=== PATIENT | female | born 1955 | race Caucasian/White ===

== ENCOUNTER → 2016-06-05 | Outpatient (CLI) | payer BC ==
--- NOTE | 2016-06-05 14:39 | XR ---
EXAMINATION TYPE: XR lumbar spine 2 or 3V DATE OF EXAM: 06/05/2016 1:47 PM COMPARISON: NONE HISTORY: Lumbar disc degenerative change TECHNIQUE: 3 view lumbar spine FINDINGS: There is loss of disc height throughout the lumbar spine. This may be greatest at the poste rior L4-5 level within the posterior L3-4 level. There are 5 lumbar-type vertebral bodies. The pedicl es are intact. Vertebral body heights are preserved. Alignment is normal. IMPRESSION: 1. Degenerative disc changes throughout the lumbar spine.
== END | disposition home or self-care (01) ==
LOC: RADXRMAIN 13:32
PROVIDERS: ATTEND Family Medicine
DX: M51.36 Other intervertebral disc degeneration, lumbar region (principal)
CPT/HCPCS: 72100

== ENCOUNTER → 2016-06-18 | Outpatient (CLI) | payer BC ==
--- NOTE | 2016-06-18 10:59 | MM ---
Reason for exam: history of breast cancer, mastectomy. Last mammogram was performed 1 year ago. History: Patient has history of breast cancer at age 54. Mastectomy of the right breast. Chemotherapy. Taking Arimidex beginning at age 54. Physical Findings: Nurse did not find any significant physical abnormalities on exam. MG 3D Diag Mammo W/Cad LT CC and MLO view(s) were taken of the left breast. Prior study comparison: June 17, 2015, mammogram. June 15, 2014, mammogram. May 16, 2012, mammogram. There are scattered fibroglandular densities. No significant new findings when compared with previous films. These results were verbally communicated with the patient and result sheet given to the patient on 06/18/16. ASSESSMENT: Negative, BI-RAD 1 RECOMMENDATION: Follow-up diagnostic mammogram of the left breast in 1 year. MIKKI
--- NOTE | 2016-06-18 15:10 | BD ---
EXAMINATION TYPE: MG DEXA axial skeleton. DATE OF EXAM: 06/18/2016 8:54 AM COMPARISON: NONE CLINICAL HISTORY: 60-year-old female postmenopausal screening, history of breast cancer, osteopenia Height: 65.2 IN Weight: 164 LBS FRAX RISK QUESTIONS: Alcohol (3 or more units per day): NO Family History (Parent hip fracture): NO Glucocorticoids (More than 3mos): NO (Ex: prednisone, prednisolone, methylprednisolone, dexamethasone, and hydrocortisone). History of Fracture in Adulthood: YES LT HAND 52 RT HAND 59 Secondary Osteoporosis: 1. Type 1 Diabetes: NO 2. Hyperthyroidism: NO 3. Menopause before 45: NO 4. Malnutrition: NO 5. Chronic liver disease: NO Rheumatoid Arthritis: NO Current Tobacco Use: NO RISK FACTORS HISTORY OF: Hip Fracture (Right/Left): MERCEDES When: MERCEDES AGE 6, LT AGE 51 Spine Fracture: When: History of Wrist Fracture: MERCEDES When: MERCEDES AGE 6, LT AGE 51 Other Fractures since Age 52: YES LT HAND AGE 52 AND RT HAND AGE 59 Active: YES Postmenopausal woman: AGE 51 MEDICATIONS: Additional Medications: VIT D, CALCIUM, ARIMIDEX, BLOOD PRESSURE MED, LISINOPRIL Additional History: BREAST CANCER WITH CHEMO EXAM MEASUREMENTS: Bone mineral densitometry was performed using the [employer] System. Bone mineral density as measured about the Lumbar spine is: ----- L1-L4(G/cm2): 0.993 T Score Values are as follows: ----- L2: -2.3 ----- L3: -1.7 ----- L4: -0.9 ----- L1-L4: -1.6 Bone mineral density has: Decreased -0.7% since study of: 02/11/2015 Bone mineral density about the R hip (g/cm2): 0.743 Bone mineral density about the L hip (g/cm2): 0.740 T Score values are as follows: -----R Neck: -2.1 -----L Neck: -2.1 -----R Intertrochanter: -1.8 -----L Intertrochanter: -1.8 Bone mineral density has: Decreased -1.8% since study of: 02/11/2015 IMPRESSION: Osteopenia as indicated by T score values in the lumbar spine and both hips. There is slightly increased risk of fracture and the patient may be considered for treatment. Re-Screen 2-5 years. NOTE: T-SCORE=SD OF THE YOUNG ADULT MEAN.
== END | disposition home or self-care (01) ==
LOC: RADMAMWWP 08:51
PROVIDERS: ATTEND Internal Medicine Hematology & Oncology
DX: M85.80 Other specified disorders of bone density and structure, unspecified site (principal)
CPT/HCPCS: 77080; G0206; G0279

== ENCOUNTER → 2016-07-02 | Outpatient (CLI) | payer BC ==
--- NOTE | 2016-07-03 06:20 | US ---
EXAMINATION TYPE: US thyroid st tissue head/neck DATE OF EXAM: 07/02/2016 4:57 PM COMPARISON: US thyroid February 24, 2014. CLINICAL HISTORY: Hypercalcemia E83.52. Hypercalcemia GLAND SIZE: Right Lobe: 4.5 x 1.4 x 1.4 cm Overall Parenchyma: homogenous Left Lobe: 4.1 x 1.3 x 1.3 cm Overall Parenchyma: homogeneous Isthmus Thickness: 0.3 cm NODULES RIGHT: # of nodules measured on right: 3 1. 0.6 X 0.6 x 0.6 cm hypoechoic solid nodule at the mid pole with well-defined margins. This nodul e is wider than tall and shows intranodular vascularity. Prior size: 0.7 x 0.4 x 0.5 cm 2. 0.8 X 0.4 x 0.8 cm hypoechoic solid nodule at the mid pole with well-defined margins. This nodule is wider than tall and shows intranodular vascularity. Prior size: 0.6 x 0.6 x 0.5 cm 3. 0.7 X 0.4 x 0.7 cm hypoechoic solid nodule at the lower pole with well-defined margins. This nodu le is wider than tall and shows intranodular vascularity. Prior size: 0.6 x 0.4 x 0.7 cm LEFT: # of nodules measured on left: 0 ISTHMUS: # of nodules measured in the isthmus: 0 Multiple right thyroid nodules as described above, bilateral neck scanned, no evidence of lymphadenop athy. Thyroid gland remains normal in size with scattered small nodules in right thyroid lobe felt stable i n size and appearance. No left-sided or isthmus nodules are identified. No suspicious extrathyroid ma ss noted on images saved. IMPRESSION: Thyroid gland is normal in size, no suspicious greater than 1 cm solid or cystic nodules are seen. No suspicious extrathyroid nodules noted.
== END | disposition home or self-care (01) ==
LOC: RADUSWWP 16:40
PROVIDERS: ATTEND Family Medicine
DX: E04.2 Nontoxic multinodular goiter (principal); E83.52 Hypercalcemia
CPT/HCPCS: 76536

== ENCOUNTER → 2017-06-19 | Outpatient (CLI) | payer BC ==
--- NOTE | 2017-06-19 17:53 | BD ---
EXAMINATION TYPE: MG DEXA axial skeleton. DATE OF EXAM: 06/19/2017 COMPARISON: 06/18/2016 CLINICAL HISTORY: Height: 65 IN Weight: 161 LBS FRAX RISK QUESTIONS: Alcohol (3 or more units per day): NO Family History (Parent hip fracture): NO Glucocorticoids (More than 3mos): NO (Ex: prednisone, prednisolone, methylprednisolone, dexamethasone, and hydrocortisone). History of Fracture in Adulthood: YES RT HAND / WRIST FX AGE 60 Secondary Osteoporosis: 1. Type 1 Diabetes: NO 2. Hyperthyroidism: NO 3. Menopause before 45: NO 4. Malnutrition: NO 5. Chronic liver disease: NO Rheumatoid Arthritis: NO Current Tobacco Use: NO RISK FACTORS HISTORY OF: History of Wrist Fracture: YES AGE 60 When: AGE 60 Active: YES Postmenopausal woman: AGE 52 MEDICATIONS: Additional Medications: VIT D, ARIMIDEX,LISINOPRIL, PREVACID, Additional History: BREAST CANCER WITH CHEMO EXAM MEASUREMENTS: Bone mineral densitometry was performed using the [employer] System. Bone mineral density as measured about the Lumbar spine is: ----- L1-L4(G/cm2): 1.081 T Score Values are as follows: ----- L2: -1.3 ----- L3: -0.8 ----- L4: 0.0 ----- L1-L4: -0.8 Bone mineral density has: Increased 10.6% since study of: 06/18/2016 Bone mineral density about the R hip (g/cm2): 0.729 Bone mineral density about the L hip (g/cm2): 0.722 T Score values are as follows: -----R Neck: -2.2 -----L Neck: -2.3 -----R Total: -1.7 -----L Total: -2.0 Bone mineral density has: Decreased -3.5% since study of: 06/18/2016 IMPRESSION: Osteopenia (T Score between -2.5 and -1). There is slightly increased risk of fracture and the patient may be considered for treatment. Re-Screen 2-5 years. NOTE: T-SCORE=SD OF THE YOUNG ADULT MEAN.
--- NOTE | 2017-06-20 10:57 | MM ---
Reason for exam: additional evaluation requested from prior study. Last mammogram was performed 1 year ago. History: Patient is postmenopausal and has history of bilateral breast cancer at age 54. Mastectomy of the right breast. Chemotherapy. Taking antineoplastic beginning at age 54. Taking other hormone beginning at age 59. Physical Findings: Nurse did not find any significant physical abnormalities on exam. MG 3D Diag Mammo W/Cad LT CC, MLO, LM, and spot compression MLO view(s) were taken of the left breast. Prior study comparison: June 18, 2016, left breast MG 3d diag mammo w/cad LT. June 17, 2015, mammogram. There are scattered fibroglandular densities. Finding: There is equal, indistinct, architectural distortion in the upper quadrant middle position of the left breast consistent with probable summation density, not present of compression or ML view. No significant changes in finding since June 18, 2016 and June 17, 2015. These results were verbally communicated with the patient and result sheet given to the patient on 06/19/17. ASSESSMENT: Benign, BI-RAD 2 RECOMMENDATION: Routine screening mammogram of both breasts in 1 year.
== END | disposition home or self-care (01) ==
LOC: RADMAMWWP 13:23
PROVIDERS: ATTEND Internal Medicine Hematology & Oncology
DX: C50.912 Malignant neoplasm of unspecified site of left female breast (principal); C50.911 Malignant neoplasm of unspecified site of right female breast; M85.80 Other specified disorders of bone density and structure, unspecified site; Z79.899 Other long term (current) drug therapy
CPT/HCPCS: 77080; 77065; G0279

== ENCOUNTER → 2018-01-31 | Outpatient (CLI) | payer BC ==
--- NOTE | 2018-01-31 14:11 | CT ---
EXAMINATION TYPE: CT abdomen pelvis w con DATE OF EXAM: 01/31/2018 HISTORY: History of hiatal hernia and renal stones with hematuria. Generalized abdominal pain x [address] DLP: 1190mGycm Automated Exposure Control for Dose Reduction was Utilized. CONTRAST: CT scan of the abdomen and pelvis is performed with IV Contrast, patient injected with 100 mL of Isov ue 300. COMPARISON: None FINDINGS: LUNG BASES: Patchy bibasilar linear scarring and/or atelectasis is present.. LIVER/GB: Subcentimeter low dense lesion right hepatic lobe axial image 19 is too small to further ch aracterize but presumed benign. PANCREAS: No significant abnormality is seen. SPLEEN: Subcentimeter splenule in splenic hilum axial image 23 is noted. ADRENALS: No significant abnormality is seen. KIDNEYS: No renal calculi clearly seen. Symmetric cortical medullary uptake and excretion is present without hydronephrosis seen bilaterally or concerning solid or cystic renal mass. No intraluminal paige culi are seen in poorly distended bladder. BOWEL: Oral contrast reaches level of hepatic flexure. There is no suspicious small or large bowel di latation. UTERUS/ADNEXA: Anteverted uterus is seen. LYMPH NODES: No greater than 1cm abdominal or pelvic lymph nodes are appreciated. OSSEOUS STRUCTURES: Mild facet arthropathy lower lumbar spine is seen. OTHER: No significant additional abnormality is seen. IMPRESSION: No renal stones or hydronephrosis. No suspicious finding is seen to account for patient's symptoms of hematuria. No fixed hiatal hernia is present. No suspicious acute finding is seen to acc ount for patient's symptoms of generalized pain for 2 weeks.
== END | disposition home or self-care (01) ==
LOC: RADCTMAIN 11:47
PROVIDERS: ATTEND Family Medicine
DX: R10.84 Generalized abdominal pain (principal); R31.9 Hematuria, unspecified
CPT/HCPCS: 74177; Q9967

== ENCOUNTER 2018-03-06 09:36 | Day surgery (SDC) | payer BC ==
[2018-02-28 09:25] VITALS: BMI 26.1
[~2018-03-06 09:36] MED LIST: LACTATED RINGERS 1,000 ML IV SCH; LIDOCAINE 1% 20 ML VIAL (10MG/ML) FOR IV START INTRADERMA PRN; MIDAZOLAM (PF) 2 MG/2 ML VIAL IV PRN
[2018-03-06 10:00] VITALS: TEMP 97.8
[2018-03-06] MEDS ORDERED: PROPOFOL 10 MG/ML 20 ML VIAL IV ONE (10:58)
--- NOTE | 2018-03-06 11:34 | P.PCN ---
Date of Procedure: 03/06/18 Procedure(s) Performed: Procedures: 1. Esophagogastroduodenoscopy and biopsy. 2. Colonoscopy and biopsy. Preoperative diagnosis: Abdominal bloating and change in bowel habits. Postoperative diagnosis: 1. Small sliding hiatal hernia with no obvious esophagitis or complicated reflux disease. 2. Mild gastritis. 3. Normal colon and terminal ileum. 4. Biopsies obtained from the duodenum, antrum, esophagus, terminal ileum and right colon. Preparation: HalfLytely prep. Sedation: Was provided by anesthesia. Brief clinical history: The patient is a 62-year-old female who has been having abdominal bloating and change in bowel habits for the last 2-3 months. She feels gurgling. Has intermittent diarrhea. No bleeding, extraintestinal manifestations of inflammatory bowel disease or other alarm symptoms. This evaluation is to assess for complicated reflux disease, inflammatory bowel disease or other pathology. Procedure: With the patient on her left lateral decubitus position and after informed consent and adequate sedation, I passed the Olympus-GIF 160 video upper endoscope through the cricopharyngeus down the esophagus. GE junction was around 38 cm from the incisors and there was a small sliding hiatal hernia but no obvious esophagitis or complicated reflux disease. The endoscope was then passed into the stomach which was insufflated with air and inspected in detail including the retroflex view in the cardia. There was diffuse mottling and erythema and regenerative diminutive polyps in the gastric body but no ulcers or erosions. Pyloric channel, duodenal bulb, post bulbar area and descending duodenum appeared within normal limits. Because of her symptoms, I obtained biopsies from the duodenum, antrum and esophagus then the endoscope was withdrawn and I proceeded with the colonoscopy. Perianal area did not show any fissures or fistulas. There were no masses felt on digital rectal examination. The Olympus CFH 190L video colonoscope was then inserted in the rectum in the usual fashion and advanced to the cecum. I intubated the ileocecal valve and examined the terminal ileum. Terminal ileum and colon appeared healthy with no edema, erythema, friability, ulceration, exudation or spontaneous bleeding. I obtained biopsies from the right colon and terminal ileum. I then retroflexed the endoscope in the rectum before the endoscope was withdrawn. The patient tolerated the procedure well. Plan: The patient was reassured. Will await biopsy results and make further plans based on her course and biopsy results. She will follow-up with you as planned and I will keep you updated on her progress.
[2018-03-06 11:55] VITALS: BP 126/81; PULSE 60; RESP 18
== END 2018-03-06 12:10 | disposition home or self-care (01) ==
LOC: ORWHC2ENDO 09:36
DX: K29.50 Unspecified chronic gastritis without bleeding (principal); K44.9 Diaphragmatic hernia without obstruction or gangrene; R19.7 Diarrhea, unspecified; I34.1 Nonrheumatic mitral (valve) prolapse; E07.9 Disorder of thyroid, unspecified; I10 Essential (primary) hypertension; Z79.899 Other long term (current) drug therapy; Z91.048 Other nonmedicinal substance allergy status; Z90.11 Acquired absence of right breast and nipple; Z85.828 Personal history of other malignant neoplasm of skin
CPT/HCPCS: 88305; 45380; 43239; J2704

== ENCOUNTER → 2018-06-20 | Outpatient (CLI) | payer BC ==
--- NOTE | 2018-06-20 10:56 | US ---
EXAMINATION TYPE: US thyroid st tissue head/neck DATE OF EXAM: 06/20/2018 COMPARISON: 07/02/2016 CLINICAL HISTORY: E04.2 Nontoxic multinodular goiter. GLAND SIZE: Right Lobe: 4.1 x 1.5 x 1.2 cm Overall Parenchyma: heterogenous Left Lobe: 3.8 x 1.1 x 1.4 cm Overall Parenchyma: heterogeneous Isthmus Thickness: 0.3 cm NODULES RIGHT: # of nodules measured on right: 3 1. 0.7 X 0.6 x 0.6 cm hypoechoic solid nodule at the mid pole with well-defined margins. This nodu le is taller than wide and shows intranodular vascularity. Prior size: 0.7 x 0.7 x 0.6 cm 2. 0.4 X 0.6 x 0.5 cm isoechoic solid nodule at the mid pole with well-defined margins. This nodule is wider than tall and shows no intranodular vascularity. Prior size: 0.9 x 0.5 x 0.6 cm 3. 0.7 X 0.4 x 0.8 cm hypoechoic solid nodule at the lower pole with well-defined margins . This n odule is wider than tall and shows intranodular vascularity. Prior size: 0.8 x 0.5 x 0.8 cm LEFT: # of nodules measured on left: 0 ISTHMUS: # of nodules measured in the isthmus: 0 Bilateral neck scanned, no evidence of lymphadenopathy. IMPRESSION: Similar size of the multiple right-sided subcentimeter thyroid nodules. No left-sided nodules are see n.
== END | disposition home or self-care (01) ==
LOC: RADUSWWP 09:16
PROVIDERS: ATTEND Family Medicine
DX: E04.2 Nontoxic multinodular goiter (principal)
CPT/HCPCS: 76536

== ENCOUNTER → 2018-06-20 | Outpatient (CLI) | payer BC ==
--- NOTE | 2018-06-20 10:48 | USB ---
Reason for exam: additional evaluation requested from abnormal screening. History: Patient is postmenopausal and has history of breast cancer at age 54. Mastectomy of the right breast. Chemotherapy. Taking other hormone beginning at age 54. US Breast Limited LT Left limited breast ultrasound including focal area of concern, retroareolar and axilla demonstrates no cystic or solid lesion seen. Scattered areas of dense tissue. These results were verbally communicated with the patient and result sheet given to the patient on 06/20/18. ASSESSMENT: Negative, BI-RAD 1 RECOMMENDATION: Routine screening mammogram of the left breast in 1 year. MTDD
--- NOTE | 2018-06-24 08:43 | MM ---
Reason for exam: additional evaluation requested from prior study. Last mammogram was performed 1 year ago. History: Patient is postmenopausal and has history of breast cancer at age 54. Mastectomy of the right breast. Chemotherapy. Taking other hormone beginning at age 54. Physical Findings: Nurse Summary: 0.5-1cm nodule in the left breast at 6 o'clock, 8-9 o'clock and 10 o'clock (nurse kp). MG 3D Diag Mammo W/Cad LT CC and MLO view(s) were taken of the left breast. Prior study comparison: June 19, 2017, left breast MG 3d diag mammo w/cad LT. June 18, 2016, left breast MG 3d diag mammo w/cad LT. There are scattered fibroglandular densities. No suspicious abnormality. These results were verbally communicated with the patient and result sheet given to the patient on 06/20/18. ASSESSMENT: Incomplete: need additional imaging evaluation, BI-RAD 0 RECOMMENDATION: Ultrasound of the left breast. (palpables)
== END | disposition home or self-care (01) ==
LOC: RADMAMWWP 09:19
PROVIDERS: ATTEND Internal Medicine Hematology & Oncology
DX: Z08 Encounter for follow-up examination after completed treatment for malignant neoplasm (principal); Z85.3 Personal history of malignant neoplasm of breast
CPT/HCPCS: 77061; 77065

== ENCOUNTER → 2019-08-17 | Outpatient (CLI) | payer BC ==
--- NOTE | 2019-08-18 10:24 | MM ---
Reason for exam: additional evaluation requested from prior study. Last mammogram was performed 1 year and 2 months ago. History: Patient is postmenopausal and has history of breast cancer at age 54. Mastectomy of the right breast. Chemotherapy. Taking other hormone beginning at age 54. Physical Findings: Nurse did not find any significant physical abnormalities on exam. MG 3D Diag Mammo W/Cad LT CC and MLO view(s) were taken of the left breast. Prior study comparison: June 20, 2018, left breast MG 3d diag mammo w/cad LT. June 19, 2017, left breast MG 3d diag mammo w/cad LT. The breast tissue is heterogeneously dense. This may lower the sensitivity of mammography. Global asymmetry stable in the upper outer quadrant. No significant new findings when compared with previous films. These results were verbally communicated with the patient and result sheet given to the patient on 08/17/19. ASSESSMENT: Negative, BI-RAD 1 RECOMMENDATION: Follow-up diagnostic mammogram of the left breast in 1 year.
== END | disposition home or self-care (01) ==
LOC: RADMAMWWP 12:52
PROVIDERS: ATTEND Internal Medicine Hematology & Oncology
DX: Z08 Encounter for follow-up examination after completed treatment for malignant neoplasm (principal); Z85.3 Personal history of malignant neoplasm of breast; Z90.710 Acquired absence of both cervix and uterus; M89.9 Disorder of bone, unspecified
CPT/HCPCS: 77061; 77065

== ENCOUNTER → 2019-08-17 | Outpatient (CLI) | payer BC ==
--- NOTE | 2019-08-17 14:05 | US ---
EXAMINATION TYPE: US thyroid st tissue head/neck DATE OF EXAM: 08/17/2019 COMPARISON: 06/20/2018 CLINICAL HISTORY: 64-year-old female E04.1 Nontoxic single thyroid nodule. Thyroid nodules TECHNIQUE: Multiple sonographic images of the thyroid gland are obtained. FINDINGS: GLAND SIZE: Right Lobe: 4.6 x 1.4 x 1.5 cm Overall Parenchyma: heterogenous Left Lobe: 4.5 x 1.4 x 1.2 cm Overall Parenchyma: heterogeneous Isthmus Thickness: 0.3 cm NODULES RIGHT: # of nodules measured on right: 3 1. 0.7 X 0.8 x 0.7 cm hypoechoic solid nodule at the medial mid pole with well-defined margins. Thi s nodule is taller than wide and shows intranodular vascularity. Prior size: 0.7 x 0.6 x 0.6 cm 2. 0.9 X 0.4 x 0.6 cm hypoechoic solid nodule at the mid pole with well-defined margins. This nodule is wider than tall and shows intranodular vascularity. Prior size: 0.4 x 0.6 x 0.5 cm 3. 1.0 X 0.6 x 0.9 cm hypoechoic solid nodule at the mid pole with well-defined margins. This nodule is wider than tall and shows intranodular vascularity. Prior size: 0.7 x 0.4 x 0.8 cm LEFT: # of nodules measured on left: 0 ISTHMUS: # of nodules measured in the isthmus: 0 Bilateral neck scanned, no evidence of lymphadenopathy. IMPRESSION: 3 solid nodules redemonstrated on the right. These show minimal increase in size by up to 2 to 3 mm, largest currently measuring 10 x 9 x 6 mm versus 8 x 7 x 4 mm, previously. Continued follow-up recomm ended.
== END | disposition home or self-care (01) ==
LOC: RADUSWWP 12:50
PROVIDERS: ATTEND Family Medicine
DX: E04.2 Nontoxic multinodular goiter (principal)
CPT/HCPCS: 76536

== ENCOUNTER → 2019-08-25 | Outpatient (CLI) | payer BC ==
--- NOTE | 2019-08-25 11:51 | BD ---
EXAMINATION TYPE: Axial Bone Density DATE OF EXAM: 08/25/2019 COMPARISON: Prior DEXA bone scan June 19, 2017. CLINICAL HISTORY: Postmenopausal female. Disorder of bone. Nuclear Medicine Study in the last 2 weeks: NO Barium Study in the last week: NO : NO Height: 5 FT 5 1/2 IN Weight: 155 FRAX RISK QUESTIONS: Alcohol (3 or more units per day): NO Family History (Parent hip fracture): NO Glucocorticoids (More than 3mos): NO (Ex: prednisone, prednisolone, methylprednisolone, dexamethasone, and hydrocortisone). History of Fracture in Adulthood: YES Secondary Osteoporosis: 1. Type 1 Diabetes: NO 2. Hyperthyroidism: NO 3. Menopause before 45: NO 4. Malnutrition: NO 5. Chronic liver disease: NO Rheumatoid Arthritis: QUESTIONABLE Current Tobacco Use: NO RISK FACTORS HISTORY OF: Active: YES Postmenopausal woman: AGE 47 MEDICATIONS: Additional Medications: ARIMIDEX, VIT D, XANAX, AMBIEN, Additional History: HISTORY OF BREAST CANCER CHEMO EXAM MEASUREMENTS: Bone mineral densitometry was performed using the [employer] System. Bone mineral density as measured about the Lumbar spine is: ----- L1-L4(G/cm2): 1.168 T Score Values are as follows: ----- L2: -1.3 ----- L3: 0.8 ----- L4: 1.3 ----- L1-L4: -0.1 Bone mineral density has: INCREASED 10.6 % since study of: 2017 Bone mineral density about the R hip (g/cm2): 0.726 Bone mineral density about the L hip (g/cm2): 0.705 T Score values are as follows: -----R Neck: -2.2 -----L Neck: -2.4 -----R Total: -1.8 -----L Total: -2.1 Bone mineral density has: DECREASED -2.3 % since study of: 2017 IMPRESSION: Osteopenia (T Score between -2.5 and -1) remains present. There remains slightly increased risk of fracture and the patient may be considered for treatment. Re-Screen 2-5 years. NOTE: T-SCORE=SD OF THE YOUNG ADULT MEAN.
== END | disposition home or self-care (01) ==
LOC: RADBDWWP 07:55
PROVIDERS: ATTEND Internal Medicine Hematology & Oncology
DX: M85.80 Other specified disorders of bone density and structure, unspecified site (principal)
CPT/HCPCS: 77080

== ENCOUNTER → 2020-03-11 | Outpatient (CLI) | payer BC ==
--- NOTE | 2020-03-11 08:26 | US ---
EXAMINATION TYPE: US thyroid st tissue head/neck DATE OF EXAM: 03/11/2020 COMPARISON: US's CLINICAL HISTORY: E04.2 nontoxic multinodular goiter. GLAND SIZE: Right Lobe: 4.3 x 1.4 x 1.3 cm Overall Parenchyma: heterogenous Left Lobe: 4.4 x 1.3 x 1.4 cm Overall Parenchyma: heterogeneous Isthmus Thickness: 0.2 cm NODULES RIGHT: # of nodules measured on right: 4 1. 0.7 X 0.8 x 0.8 cm solid or almost completely solid, hypoechoic nodule, which is taller than wid e, with smooth margins, without echogenic foci. Prior size: 0.7 x 0.8 x 0.7 cm 2. 0.9 X 0.5 x 0.7 cm solid or almost completely solid, hypoechoic nodule, which is wider than tall , with smooth margins, without echogenic foci. Prior size: 0.9 x 0.4 x 0.6 cm 3. 0.6 X 0.4 x 0.7 cm solid or almost completely solid, hypoechoic nodule, which is wider than tall , with smooth margins, without echogenic foci. Prior size: 1.0 x 0.6 x 0.9 cm 4. 0.8 X 0.5 x 0.8 cm solid or almost completely solid, isoechoic nodule, which is wider than tall, with smooth margins, without echogenic foci. Prior size: not previously measured. LEFT: # of nodules measured on left: 0 ISTHMUS: # of nodules measured in the isthmus: 0 Bilateral neck scanned, no evidence of lymphadenopathy. IMPRESSION: No enlarging thyroid nodules. 2017 ACR TI-RADS LEVEL: 4 *Highest TI-RADS level nodule reported
== END | disposition home or self-care (01) ==
LOC: RADUSWWP 07:29
PROVIDERS: ATTEND Family Medicine
DX: E04.2 Nontoxic multinodular goiter (principal)
CPT/HCPCS: 76536

== ENCOUNTER → 2020-08-22 | Outpatient (CLI) | payer BC ==
--- NOTE | 2020-08-22 11:12 | MM ---
Reason for exam: additional evaluation requested from prior study. Last mammogram was performed 1 year ago. History: Patient is postmenopausal and has history of breast cancer at age 54. Mastectomy of the right breast. Chemotherapy. Taking other hormone for 10 years beginning at age 54. Physical Findings: Nurse did not find any significant physical abnormalities on exam. MG 3D Diag Mammo W/Cad LT CC and MLO view(s) were taken of the left breast. Prior study comparison: August 17, 2019, left breast MG 3d diag mammo w/cad LT. June 20, 2018, left breast MG 3d diag mammo w/cad LT. There are scattered fibroglandular densities. Stable post right lumpectomy. These results were verbally communicated with the patient and result sheet given to the patient on 08/22/20. ASSESSMENT: Benign, BI-RAD 2 RECOMMENDATION: Follow-up diagnostic mammogram of the left breast in 1 year.
== END | disposition home or self-care (01) ==
LOC: RADMAMWWP 10:08
PROVIDERS: ATTEND Internal Medicine Hematology & Oncology
DX: N64.89 Other specified disorders of breast (principal); Z78.0 Asymptomatic menopausal state; Z85.3 Personal history of malignant neoplasm of breast; Z90.11 Acquired absence of right breast and nipple
CPT/HCPCS: 77061; 77065

== ENCOUNTER → 2020-09-21 | Outpatient (CLI) | payer BC ==
--- NOTE | 2020-09-21 07:50 | US ---
EXAMINATION TYPE: US thyroid st tissue head/neck DATE OF EXAM: 09/21/2020 COMPARISON: US dated 03/11/2020 CLINICAL HISTORY: E04.2 nontoxic goiter. GLAND SIZE: Right Lobe: 4.4 x 1.4 x 1.4 cm Overall Parenchyma: heterogenous Left Lobe: 4.5 x 1.1 x 1.3 cm Overall Parenchyma: heterogeneous Isthmus Thickness: 0.3 cm NODULES RIGHT: # of nodules measured on right: 3 1. 0.8 X 0.9 x 0.8 cm, upper mid, solid or almost completely solid, hypoechoic nodule, which is jose ler than wide, with smooth margins, without echogenic foci. Prior size: 0.7 x 0.8 x 0.8 cm 2. 0.8 X 0.5 x 0.9 cm, lower mid, solid or almost completely solid, hypoechoic nodule, which is wid er than tall, with smooth margins, without echogenic foci. Prior size: 0.8 x 0.5 x 0.8 cm 3. 0.6 X 0.5 x 0.6 cm, mid mid, solid or almost completely solid, hypoechoic nodule, which is wider than tall, with smooth margins, without echogenic foci. Prior size: 0.9 x 0.5 x 0.7 cm There is one more smaller nodule that has decreased in size. LEFT: # of nodules measured on left: 0 ISTHMUS: # of nodules measured in the isthmus: 0 Bilateral neck scanned, no evidence of lymphadenopathy. IMPRESSION: Multiple right thyroid nodules which are smaller or similar in size to the prior exam. 2017 ACR TI-RADS LEVEL: TI-RADS 5 - Highly Suspicious: Follow if > 0.5 cm, FNA if > 1.0 cm *Highest TI-RADS level nodule reported
== END | disposition home or self-care (01) ==
LOC: RADUSWWP 07:04
PROVIDERS: ATTEND Family Medicine
DX: E04.2 Nontoxic multinodular goiter (principal)
CPT/HCPCS: 76536

== ENCOUNTER → 2021-08-24 | Outpatient (CLI) | payer BC ==
--- NOTE | 2021-08-24 11:53 | MM ---
Reason for Exam: Additional evaluation requested from prior study. Last screening mammogram was performed 12 month(s) ago. Patient History: Menarche at age 14. First Full-Term at age 30. Postmenopausal. Breast cancer, right, age 54. Previous chemotherapy at age 54. Mastectomy on the Right side. Chemotherapy. Prior Study Comparison: 06/20/2018 Left Diagnostic Mammogram, [facility]. 08/17/2019 Left Diagnostic Mammogram, [facility]. 08/22/2020 Left Diagnostic Mammogram, [facility]. Tissue Density: Left: There are scattered fibroglandular densities. Findings: Analyzed By CAD. Pattern appears stable. No suspicious spiculated or lobular mass cluster microcalcifications or architectural distortion is evident. Overall Assessment: Benign, BI-RAD 2 Management: Screening Mammogram of the left breast in 1 year. A clinical breast exam by your physician is recommended on an annual basis and results should be correlated with mammographic findings. This exam should not preclude additional follow-up of suspicious palpable abnormalities. Results were given to the patient verbally at the time of exam. Electronically signed and approved by: Víctor Padilla D.O. Radiologis
== END | disposition home or self-care (01) ==
LOC: RADMAMWWP 10:50
PROVIDERS: ATTEND Internal Medicine Hematology & Oncology
DX: R92.8 Other abnormal and inconclusive findings on diagnostic imaging of breast (principal); Z78.0 Asymptomatic menopausal state; Z85.3 Personal history of malignant neoplasm of breast
CPT/HCPCS: 77061; 77065

== ENCOUNTER → 2021-10-16 | Outpatient (CLI) | payer BC ==
--- NOTE | 2021-10-16 10:12 | US ---
EXAMINATION TYPE: US thyroid st tissue head/neck DATE OF EXAM: 10/16/2021 COMPARISON: 03/10/2021 CLINICAL HISTORY: 66-year-old female E04.2 Nontoxic multinodular goiter. TECHNIQUE: Multiple sonographic images of the thyroid gland are obtained. GLAND SIZE: Right Lobe: 4.5 x 1.4 x 1.1 cm Overall Parenchyma: heterogenous Left Lobe: 4.4 x 1.0 x 1.3 cm Overall Parenchyma: heterogeneous Isthmus Thickness: 0.2 cm NODULES RIGHT: # of nodules measured on right: 4 1. 0.8 X 0.5 x 0.5 cm, upper, solid or almost completely solid, hypoechoic TR 4 nodule, which is wi елена than tall, with smooth margins, without echogenic foci. Prior size:0.8 x 0.8 x 0.9 cm 2. 0.9 X 0.9 x 0.9 cm, upper, solid or almost completely solid, hypoechoic nodule, which is taller than wide, with smooth margins, without echogenic foci. Prior size:0.8 x 0.8 x 0.9 cm 3. 0.7 X 0.5 x 0.6cm, lower , solid or almost completely solid, hypoechoic TR 4 nodule, which is wi елена than tall, with smooth margins, without echogenic foci. Prior size:0.8 X 0.5 x 0.5 cm 4. 0.7 X 0.5 x 0.6 cm, lower, solid or almost completely solid, hypoechoic TR 4 nodule, which is wi елена than tall, with ill-defined margins, without echogenic foci. Prior size: 0.8 X 0.9 x 0.5 LEFT: # of nodules measured on left: 0 ISTHMUS: # of nodules measured in the isthmus: 0 Bilateral neck scanned, no evidence of lymphadenopathy. IMPRESSION: Approximately four solid TR4 nodules in the right lobe are redemonstrated, largest measuring up to 9 mm. These are unchanged and can continue to be followed. FNA if they reach 1.5 cm.
== END | disposition home or self-care (01) ==
LOC: RADUSWWP 07:37
PROVIDERS: ATTEND Family Medicine
DX: E04.2 Nontoxic multinodular goiter (principal)
CPT/HCPCS: 76536

== ENCOUNTER → 2022-08-27 | Outpatient (CLI) | payer MEDICARE ==
--- NOTE | 2022-08-28 08:42 | MM ---
Reason for Exam: Screening (asymptomatic). Last screening mammogram was performed 12 month(s) ago. Patient History: Menarche at age 14. First Full-Term at age 30. Postmenopausal. Breast cancer, right, age 54. Previous chemotherapy at age 54. Mastectomy on the Right side. Chemotherapy. Prior Study Comparison: 08/17/2019 Left Diagnostic Mammogram, [facility]. 08/22/2020 Left Diagnostic Mammogram, [facility]. 08/24/2021 Left MG 3D diag mammo w/cad LT, [facility]. Tissue Density: Left: There are scattered fibroglandular densities. Findings: Analyzed By CAD. There is no suspicious group of microcalcifications or new suspicious mass in either breast. Overall Assessment: Negative, BI-RAD 1 Management: Screening Mammogram of both breasts in [address] [facility] will attempt to contact patient to return for supplemental views and ultrasound if indicated. Patient should continue monthly self-breast exams. A clinical breast exam by your physician is recommended on an annual basis. This exam should not preclude additional follow-up of suspicious palpable abnormalities. Note on Ary scores and lifetime risk: 1. A Ary score greater than 3% is considered moderate risk. If this is the case, consider specialist referral to assess eligibility for a risk reducing agent. 2. If overall lifetime risk for the development of breast cancer is 20% or higher, the patient may qualify for future screening with alternating mammogram and breast MRI. Electronically signed and approved by: Brando Gil DO
== END ==
LOC: RADMAMWWP 09:55
PROVIDERS: ATTEND Internal Medicine Hematology & Oncology
DX: Z12.31 Encounter for screening mammogram for malignant neoplasm of breast (principal); Z78.0 Asymptomatic menopausal state; Z90.11 Acquired absence of right breast and nipple
CPT/HCPCS: 77063; 77067

== ENCOUNTER → 2022-09-12 | Outpatient (CLI) | payer MEDICARE ==
--- NOTE | 2022-09-12 13:10 | US ---
EXAMINATION TYPE: US Aorta Screening DATE OF EXAM: 09/12/2022 COMPARISON: 01/31/2018 CLINICAL INDICATION: Female, 67 years old with history of Z13.6 ENCOUNTER FOR SCREENING FOR CARDIOVAS CULAR D; SCREENING, BROTHER W/AAA TECHNIQUE: Multiple sonographic images of the abdominal aorta are obtained. 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 No evidence for aortic aneurysm.
== END | disposition home or self-care (01) ==
LOC: RADUSWWP 08:55
PROVIDERS: ATTEND Family Medicine
DX: Z13.6 Encounter for screening for cardiovascular disorders (principal); I77.811 Abdominal aortic ectasia
CPT/HCPCS: 76706

== ENCOUNTER → 2022-09-19 | Outpatient (CLI) | payer MEDICARE ==
--- NOTE | 2022-09-20 09:33 | BD ---
EXAMINATION TYPE: Axial Bone Density DATE OF EXAM: 09/19/2022 CLINICAL HISTORY: 67 years old Female. ICD-10 CODE: M85.9 DISORDER OF BONE DENSITY Height: 65 Weight: 158.9 FRAX RISK QUESTIONS: Alcohol (3 or more units per day): no Family History (Parent hip fracture): no Glucocorticoids (More than 3mos): no History of Fracture in Adulthood: Foot, Bilateral Hands, Wrist Secondary Osteoporosis: 1. Type 1 Diabetes: no 2. Hyperthyroidism: no 3. Menopause before 45: no 4. Malnutrition: no 5. Chronic liver disease: no Rheumatoid Arthritis: no Current Tobacco Use: no RISK FACTORS HISTORY OF: Hip Fracture (Right/Left): no Spine Fracture: no History of Wrist Fracture: bilateral When: age 6 Surgery to Spine/Hip(right/left)/Wrist (right/left): no Family History of Osteoporosis: no Active: yes Diet low in dairy products/other sources of calcium: no Postmenopausal woman: yes Take estrogen and/or progesterone medications: no Lost more than 2 inches in height since high school: no Frequent falls: no Poor Health: no Hyperparathyroidism: no Adrenal Insufficiency: no MEDICATIONS: Prednisone or other steroids: no Thyroid Medications:no Osteoporosis Medications: no Additional Medications: Vit D, Calcium, Citracal, [place] 3, xanax Additional History: Breast 2010 with chemo EXAM MEASUREMENTS: Bone mineral densitometry was performed using the [employer] System. Bone mineral density as measured about the Lumbar spine is: ----- L1-L4(G/cm2 1.210 T Score Values are as follows: ----- L1: -1.1 ----- L2: -0.3 ----- L3: 1.8 ----- L4: 0.9 ----- L1-L4: 0.2 Z Score Values are as follows: ----- L1: 0.2 ----- L2: 1.0 ----- L3: 3.1 ----- L4: 2.2 ----- L1-L4: `1.6 Bone mineral density has: increased 3.6 % since study of: 08/25/2019 Bone mineral density about the R hip (g/cm2): 0.824 Bone mineral density about the L hip (g/cm2): 0.784 T Score values are as follows: -----R Neck: -2.1 -----L Neck: -1.9 -----R Total: -1.5 -----L Total: -1.8 Z Score values are as follows: -----R Neck: -0.8 -----L Neck: -0.6 -----R Total: -0.4 -----L Total: -0.8 Bone mineral density has: increased 6.1 % since study of: 08/25/2019 FRAX%s: The graph provided illustrates a 18.4% chance for a major osteoporotic fx and a 3.1% chance f or the hips probability for fx in 10 years time. IMPRESSION: Osteopenia (T Score between -2.5 and -1). There is slightly increased risk of fracture and the patient may be considered for treatment. Re-Screen 2-5 years. NOTE: T-SCORE=SD OF THE YOUNG ADULT MEAN.
== END | disposition home or self-care (01) ==
LOC: RADBDWWP 14:52
PROVIDERS: ATTEND Internal Medicine Hematology & Oncology
DX: C50.919 Malignant neoplasm of unspecified site of unspecified female breast (principal); M85.89 Other specified disorders of bone density and structure, multiple sites; F41.8 Other specified anxiety disorders; M25.50 Pain in unspecified joint
CPT/HCPCS: 77080

== ENCOUNTER → 2023-01-28 | Outpatient (CLI) | payer MEDICARE ==
--- NOTE | 2023-01-28 09:49 | US ---
EXAMINATION TYPE: US thyroid st tissue head/neck DATE OF EXAM: 01/28/2023 COMPARISON: US 2021 CLINICAL INDICATION: Female, 67 years old with history of R04.2 MULTINOD GOITER; Thyroid nodules GLAND SIZE: Right Lobe: 5.0 x 1.4 x 1.4 cm Overall Parenchyma: heterogenous Left Lobe: 4.3 x 1.2 x 1.3 cm Overall Parenchyma: heterogenous Isthmus Thickness: 0.3 cm NODULES RIGHT: # of nodules measured on right: multiple subcentimeter nodules with largest described below 1. 0.9 X 0.9 x 0.8 cm, mid medial, Prior size: 0.9 x 0.9 x 0.9 cm TIRADS Score: 5 TIRADS Category 4: Moderately Suspicious Composition: Solid or almost completely solid (2 points). Echogenicity: Very hypoechoic (3 points). Shape: Wider than tall (0 points). Margin: Smooth (0 points). Echogenic foci: None or large comet-tail artifacts (0 points) Recommendation: If >1.5cm: FNA; If >1cm: Follow up at 1,2, 3,5 years LEFT: # of nodules measured on left: 0 ISTHMUS: # of nodules measured in the isthmus: 0 Bilateral neck scanned, no evidence of lymphadenopathy. IMPRESSION: Moderately suspicious right thyroid nodule which is stable in size from 10/16/2021 and increased espec ially in size from 09/21/2020. Given increase in in size from and its very hypoechoic appearance co nsideration for tissue sampling should be considered of the right thyroid nodule if it has not alread y been performed.
== END | disposition home or self-care (01) ==
LOC: RADUSWWP 08:19
PROVIDERS: ATTEND Family Medicine
DX: E04.2 Nontoxic multinodular goiter (principal)
CPT/HCPCS: 76536

== ENCOUNTER → 2023-07-23 | Outpatient (CLI) | payer MEDICARE | END | disposition home or self-care (01) | LOC: LABWHC1 09:50 | PROVIDERS: ATTEND Family Medicine | DX: I10 Essential (primary) hypertension (principal); R00.1 Bradycardia, unspecified | CPT/HCPCS: 93005 ==

== ENCOUNTER → 2023-08-29 | Outpatient (CLI) | payer MEDICARE ==
--- NOTE | 2023-08-29 10:32 | MM ---
Reason for Exam: Screening (asymptomatic). Last screening mammogram was performed 12 month(s) ago. Patient History: Menarche at age 14. First Full-Term at age 30. Postmenopausal. Patient has history of breast feeding. Breast cancer, right, age 54. Previous chemotherapy at age 54. Mastectomy on the Right side. Chemotherapy. Prior Study Comparison: 06/19/2017 Left Diagnostic Mammogram, [facility]. 06/20/2018 Left Diagnostic Mammogram, [facility]. 08/17/2019 Left Diagnostic Mammogram, [facility]. 08/22/2020 Left Diagnostic Mammogram, [facility]. 08/24/2021 Left MG 3D diag mammo w/cad LT, [facility]. 08/27/2022 Left MG 3D screening mammo w/cad, [facility]. Tissue Density: Left: There are scattered areas of fibroglandular density. Findings: Analyzed By CAD. Left breast: There is no suspicious group of microcalcifications or new suspicious mass. Overall Assessment: Negative, BI-RAD 1 Management: Screening Mammogram of both breasts in [address] [facility] will attempt to contact patient to return for supplemental views and ultrasound if indicated. Patient should continue monthly self-breast exams. A clinical breast exam by your physician is recommended on an annual basis. This exam should not preclude additional follow-up of suspicious palpable abnormalities. Note on Ary scores and lifetime risk: 1. A Ary score greater than 3% is considered moderate risk. If this is the case, consider specialist referral to assess eligibility for a risk reducing agent. 2. If overall lifetime risk for the development of breast cancer is 20% or higher, the patient may qualify for future screening with alternating mammogram and breast MRI. Electronically signed and approved by: Brando Gil DO
== END | disposition home or self-care (01) ==
LOC: RADMAMWWP 10:02
PROVIDERS: ATTEND Internal Medicine Hematology & Oncology
DX: Z12.31 Encounter for screening mammogram for malignant neoplasm of breast (principal); M85.88 Other specified disorders of bone density and structure, other site; F41.8 Other specified anxiety disorders; Z71.3 Dietary counseling and surveillance; C50.911 Malignant neoplasm of unspecified site of right female breast; M25.50 Pain in unspecified joint
CPT/HCPCS: 77067

== ENCOUNTER → 2024-08-31 | Outpatient (CLI) | payer MEDICARE ==
--- NOTE | 2024-08-31 17:11 | MM ---
Reason for Exam: Hx of breast cancer, mastectomy. Last screening mammogram was performed 12 month(s) ago. Patient History: Menarche at age 14. First Full-Term at age 30. Postmenopausal. Patient has history of breast feeding. Breast cancer, right, age 54. Previous chemotherapy at age 54. Mastectomy on the Right side. Chemotherapy. Prior Study Comparison: 06/19/2017 Left Diagnostic Mammogram, [facility]. 06/20/2018 Left Diagnostic Mammogram, [facility]. 08/17/2019 Left Diagnostic Mammogram, [facility]. 08/22/2020 Left Diagnostic Mammogram, [facility]. 08/24/2021 Left MG 3D diag mammo w/cad LT, [facility]. 08/27/2022 Left MG 3D screening mammo w/cad, [facility]. 08/29/2023 Left MG 3D scr shruti unilateral w/cad., [facility]. Tissue Density: The breasts are heterogeneously dense, which may obscure small masses. Findings: Analyzed By CAD. There is no suspicious group of microcalcifications or new suspicious mass in either breast. Overall Assessment: Negative, BI-RAD 1 Management: Screening Mammogram of the left breast in 1 year. Patient should continue monthly self-breast exams. A clinical breast exam by your physician is recommended on an annual basis. This exam should not preclude additional follow-up of suspicious palpable abnormalities. [facility], , 08/31/2024 5:08 PM. Electronically signed and approved by: Anel Andrea M.D. Radiologist
== END | disposition home or self-care (01) ==
LOC: RADMAMWWP 10:04
PROVIDERS: ATTEND Internal Medicine Hematology & Oncology
DX: Z12.31 Encounter for screening mammogram for malignant neoplasm of breast (principal); R92.333 Mammographic heterogeneous density, bilateral breasts; Z78.0 Asymptomatic menopausal state; Z85.3 Personal history of malignant neoplasm of breast
CPT/HCPCS: 77067

== ENCOUNTER → 2024-10-01 | Outpatient (CLI) | payer MEDICARE ==
--- NOTE | 2024-10-01 19:49 | BD ---
EXAMINATION TYPE: Axial Bone Density DATE OF EXAM: 10/01/2024 CLINICAL HISTORY: 69 years old Female. ICD-10 CODE: Z78.0 ASYMPTOMATIC MENOPAUSAL STATE , Additional History: Height: 64.5 Weight: 152.2 FRAX RISK QUESTIONS: Alcohol (3 or more units per day): no Family History (Parent hip fracture): no Glucocorticoids (More than 3mos): no (Ex: prednisone, prednisolone, methylprednisolone, dexamethasone, and hydrocortisone). History of Fracture in Adulthood: Lt Wrist, ankle, rt hand Secondary Osteoporosis: 1. Type 1 Diabetes: no 2. Hyperthyroidism: no 3. Menopause before 45: no 4. Malnutrition: no 5. Chronic liver disease: no Rheumatoid Arthritis: no Current Tobacco Use: no RISK FACTORS HISTORY OF: Hip Fracture (Right/Left): no Spine Fracture: no History of Wrist Fracture: Lt Wrist When: Age 42 Surgery to Spine/Hip(right/left)/Wrist (right/left): no MEDICATIONS: Thyroid Medications: Levothyroxine How Long: past year Osteoporosis Medications: no EXAM MEASUREMENTS: Bone mineral densitometry was performed using the [employer] System. Bone mineral density as measured about the Lumbar spine is: ----- L1-L4(G/cm2): 1.265 T Score Values are as follows: ----- L1: -0.5 ----- L2: 0.7 ----- L3: 1.3 ----- L4: 1.0 ----- L1-L4: 0.7 Z Score Values are as follows: ----- L1: 1.0 ----- L2: 2.2 ----- L3: 2.8 ----- L4: 2.5 ----- L1-L4: 2.2 Bone mineral density has: increased 4.5 % since study of: 09/19/2022 Bone mineral density about the R hip (g/cm2): 0.803 Bone mineral density about the L hip (g/cm2): 0.706 T Score values are as follows: -----R Neck: -2.1 -----L Neck: -2.5 -----R Total: -1.6 -----L Total: -2.4 Z Score values are as follows: -----R Neck: -0.6 -----L Neck: -1.0 -----R Total: -0.4 -----L Total: -1.2 Bone mineral density has: decreased -6.2 % since study of: 09/19/2022 FRAX%s: The graph provided illustrates a 22.3% chance for a major osteoporotic fx and a 5.0% chance f or the hips probability for fx in 10 years time. IMPRESSION: Osteoporosis (T Score less than -2.5). There is increased fracture risk and therapy is usually indicated based on age. Re-Screen 1-2 years. NOTE: T-SCORE=SD OF THE YOUNG ADULT MEAN. [facility], , 10/01/2024 7:47 PM
== END | disposition home or self-care (01) ==
LOC: RADBDWWP 08:04
PROVIDERS: ATTEND Family Medicine
DX: M81.0 Age-related osteoporosis without current pathological fracture (principal); Z78.0 Asymptomatic menopausal state
CPT/HCPCS: 77080